=== PATIENT | female | born 1975 | race Asian ===

== ENCOUNTER 2019-10-23 08:51 | Outpatient (CLI) | payer BC | END 2019-10-23 20:15 | disposition home or self-care (01) | LOC: MAMMO 08:51 | DX: Z12.31 Encounter for screening mammogram for malignant neoplasm of breast (principal) ==

== ENCOUNTER 2020-04-03 14:06 | Outpatient (CLI) | payer BC | END 2020-04-03 19:50 | disposition home or self-care (01) | LOC: RAD 14:06 | PROVIDERS: ATTEND Nurse Practitioner Family | DX: M79.671 Pain in right foot (principal) ==

== ENCOUNTER 2020-06-29 08:43 | Outpatient (CLI) | payer BC | END 2020-06-29 22:24 | disposition home or self-care (01) | LOC: MRI 08:43 | DX: M79.671 Pain in right foot (principal) ==

== ENCOUNTER 2020-08-11 12:06 | Outpatient (CLI) | payer BC | END 2020-08-11 22:28 | disposition home or self-care (01) | LOC: RAD 12:06 | PROVIDERS: ATTEND Registered Nurse | DX: R05 Cough (principal) ==

== ENCOUNTER 2020-11-06 08:32 | Outpatient (CLI) | payer BC | END 2020-11-06 20:52 | disposition home or self-care (01) | LOC: MAMMO 08:32 | PROVIDERS: ATTEND Plastic Surgery Plastic Surgery Within the Head and Neck | DX: Z12.31 Encounter for screening mammogram for malignant neoplasm of breast (principal) ==

== ENCOUNTER 2021-01-19 10:22 | Outpatient (CLI) | payer BC | END 2021-01-19 21:59 | disposition home or self-care (01) | LOC: RAD 10:22 | PROVIDERS: ATTEND Nurse Practitioner Family | DX: Z01.818 Encounter for other preprocedural examination (principal) ==

== ENCOUNTER 2021-11-04 09:01 | Outpatient (CLI) | payer BC | END 2021-11-04 19:13 | disposition home or self-care (01) | LOC: MAMMO 09:01 | PROVIDERS: ATTEND Plastic Surgery Plastic Surgery Within the Head and Neck | DX: N63.41 Unspecified lump in right breast, subareolar (principal) | CPT/HCPCS: G0279 ==

== ENCOUNTER 2021-11-17 08:35 | Outpatient (CLI) | payer BC | END 2021-11-17 19:35 | disposition home or self-care (01) | LOC: US 08:35 | PROVIDERS: ATTEND Plastic Surgery Plastic Surgery Within the Head and Neck | DX: R92.8 Other abnormal and inconclusive findings on diagnostic imaging of breast (principal) ==

== ENCOUNTER 2022-05-12 11:43 | Outpatient (CLI) | payer BC | END 2022-05-12 19:33 | disposition home or self-care (01) | LOC: RAD 11:43 | PROVIDERS: ATTEND Nurse Practitioner Family | DX: M79.672 Pain in left foot (principal) ==